=== PATIENT | male | born 1995 | race African-American/Black ===

== ENCOUNTER 2019-09-21 11:38 | Emergency (ER) | payer MEDICAID ==
[~2019-09-21] VITALS: Ht 182.9 cm; Wt 2.0 kg
[2019-09-21] MEDS ORDERED: IBUPROFEN 800 MG TABLET PO ONE (12:45)
[2019-09-21 13:28] VITALS: BP 116/72
== END 2019-09-21 13:32 | disposition home or self-care (01) ==
LOC: EMS 11:45
DX: M25.562 Pain in left knee (principal); F12.90 Cannabis use, unspecified, uncomplicated; Z98.890 Other specified postprocedural states; Z88.0 Allergy status to penicillin
CPT/HCPCS: 29505